=== PATIENT | male | born 2000 | race Hispanic/Latino ===

== ENCOUNTER 2022-02-13 15:08 | Emergency (ER) | payer OTHER, SELFPAY | END 2022-02-13 15:33 | disposition left against medical advice (07) | LOC: ANHED 15:32 | PROVIDERS: PCP Family Medicine | DX: Z53.21 Procedure and treatment not carried out due to patient leaving prior to being seen by health care provider (principal) | CPT/HCPCS: 99199 ==

== ENCOUNTER 2022-04-07 07:09 | Emergency (ER) | payer OTHER, SELFPAY ==
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
[2022-04-07 07:18] VITALS: BP 177/134; PULSE 157; RESP 20; TEMP 37.1; O2SAT 99
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
--- NOTE | 2022-04-07 07:52 | PC.NURSE ---
Geological Engineering Teacher notified of Clear and Present at this time.
[2022-04-07 08:24] LABS: Basophils Percent Auto 0.4 % (0.2-1.2); Eosinophils Absolute Auto 0.1 K/mm3 (0-0.3); Eosinophils Percent Auto 1.3 % (0-4.4); Hematocrit 44.7 % (42.0-52.0); Hemoglobin 14.8 g/dL (14.0-18.0); Immature Granulocyte Absolute 0.07 K/mm3 (0.00-0.031); Immature Granulocyte Percent A 0.6 % (0-0.5); Lymphocytes Absolute Auto 2.53 K/mm3 (0.9-3.2); Mean Corpuscular HGB Conc 33.1 g/dl (32-36); Mean Corpuscular Hemoglobin 30.6 pg (26-34); Mean Corpuscular Volume 92.4 fl (80-100); Mean Platelet Volume 10.3 fl (7.4-10.4); Monocytes Absolute Auto 0.8 K/mm3 (0.1-0.6); Monocytes Percent Auto 7.2 % (2.6-8.5); Neutrophils Absolute Auto 7.4 K/mm3 (1.3-6.7); Neutrophils Percent Auto 67.5 % (45.5-73.1); Platelet Count Result 275 k/mm3 (150-375); Red Blood Count 4.84 M/mm3 (4.6-6.20); Red Cell Distribution Width 12.8 % (11.5-14.5)
[2022-04-07] MEDS: TETANUS,DIPHTHERIA,AC PERTUSSIS ADULT (0.5 ML) BOOSTRIX IM (08:24)
[2022-04-07 08:26] LABS: Appearance Urine Clear (Clear); Bilirubin Urine Negative (Negative); Color Urine Yellow (Yellow); Glucose Urine UA Negative (Negative); Ketones Urine Negative (Negative); Leukocyte Esterase Ur Negative LEU/UL (Negative); Nitrate Urine Negative (Negative); Protein Urine 1+ mg/dL (Negative); Urobilinogen Urine 0.2 mg/dL (<2.0)
[2022-04-07 08:29] LABS: Add Urine Microscopic? YES; Blood Urine Trace-Intact (Negative)
[2022-04-07 08:30] VITALS: BP 147/85; PULSE 80; RESP 20; O2SAT 100
[2022-04-07 08:31] LABS: Mucus Urine Rare /lpf; RBC Urine 0-2 /hpf (0-2); WBC Urine 0-3 /hpf
[2022-04-07 08:36] LABS: Alanine Aminotransferase 71 U/L (6-50); Albumin Level 4.9 g/dL (3.5-5.1); Alkaline Phosphatase 83 U/L (38-126); Anion Gap 15 mmol/L (8-16); Aspartate Amino Transferase 42 U/L (17-59); Bilirubin,Total 0.4 mg/dL (0.2-1.3); Blood Urea Nitrogen 12 mg/dL (9-20); Calcium 9.2 mg/dL (8.4-10.2); Carbon Dioxide 22 mmol/L (22-30); Chloride 104 mmol/L (98-107); Estimated CRCL calculation 147 ml/min; Estimated Glomerular Filt Rate > 60; Glucose 105 mg/dL (65-110); Potassium 3.6 mmol/L (3.4-5.0); Sodium 141 mmol/L (137-145)
[2022-04-07 08:39] LABS: Amphetamine Screen Urine Negative (Negative); Barbiturate Screen Urine Negative (Negative); Benzodiazepines Screen Urine Negative (Negative); Cannabinoid Screen Urine Negative (Negative); Cocaine Screen Urine Negative (Negative); Methadone Screen Urine Negative (Negative); Opiate Screen Urine Negative (Negative); Phencyclidine Screen Urine Negative (Negative)
[2022-04-07 08:54] LABS: Acetaminophen < 10 ug/mL (10-30); Ethanol 173 mg/dL (<10); Salicylate < 1.0 mg/dL (2-20)
[2022-04-07] MEDS: LORazepam INJ (*CRX) 2 MG/ML VIAL (08:57)
[2022-04-07 09:00] LABS: SARS-CoV-2 RNA PCR Negative
[2022-04-07] MEDS: LIDO 1%/EPINEPHRINE 1:100,000 10 ML VIAL INFILTRATE (10:59)
--- NOTE | 2022-04-07 11:09 | PC.NURSE ---
crisis in room with patient at this time
--- NOTE | 2022-04-07 11:30 | PC.NURSE ---
pt going to be placed involuntary
[2022-04-07 14:29] LABS: Ethanol < 10 mg/dL (<10)
--- NOTE | 2022-04-07 15:23 | PC.NURSE ---
Mirtha with crisis updated with pt etoh level <10.
[2022-04-07] MEDS: NICOTINE (*PBKC) 14 MG PATCH 1 PATCH TRANSDERM (17:36)
[2022-04-07] MEDS: LORazepam (*CRX) 1 MG TABLET PO (17:36)
--- NOTE | 2022-04-08 01:30 | PC.NURSE ---
Pt threw nicotine patch in the trash due to it falling on the floor.
[2022-04-08 01:41] VITALS: BP 148/93; PULSE 102; RESP 16; TEMP 36.8; O2SAT 97
--- NOTE | 2022-04-08 01:44 | PC.NURSE ---
PT asking that in the morning the nurse attempt to call his grandpa again in the morning. Asking that the grandpa speak with the uncle to see if anyone can get a hold of his girlfriend. he would like her to bring his keys and glasses.
[2022-04-08] MEDS: LORazepam (*CRX) 1 MG TABLET PO (02:03)
[2022-04-08] MEDS: NICOTINE (*PBKC) 21 MG PATCH 1 PATCH TRANSDERM (09:10)
[2022-04-08 11:15] VITALS: BP 155/93; PULSE 95; RESP 16; TEMP 37.1; O2SAT 97
== END 2022-04-08 14:40 ==
PROVIDERS: Emergency Medicine; Emergency Provider Emergency Medicine
DX: F32.9 Major depressive disorder, single episode, unspecified (principal); R45.851 Suicidal ideations; S21.112A Laceration without foreign body of left front wall of thorax without penetration into thoracic cavity, initial encounter; W27.2XXA Contact with scissors, initial encounter; Z20.822 Contact with and (suspected) exposure to COVID-19; Z23 Encounter for immunization
CPT/HCPCS: 36415; 71260; 80053; 80307; 81001; 84443; 85025; 90471; 90715; 99285; A9270; C9803; J2060; Q9967; U0003; U0005

== ENCOUNTER 2022-04-25 01:04 | Emergency (ER) | payer OTHER, SELFPAY ==
--- NOTE | 2022-04-25 01:14 | ED.PSYCH ---
HPI - Psych General Chief Complaint: Psychiatric Symptoms <Kirt Aponte APRN - Last Filed: 04/25/22 02:07> Stated Complaint: PSYCH <Kirt Aponte APRN - Last Filed: 04/25/22 02:07> Time Seen by Provider: 04/25/22 01:09 <Kirt Aponte APRN - Last Filed: 04/25/22 02:07> History of Present Illness HPI Narrative: 22-year-old male presents the emergency room via EMS for allegedly suicidal ideation. Patient states that he has been anxious recently, thinking about his recently mother. Patient made some a self harming comments, which included the desire to stab himself. Patient states that he was able to talk to a friend's mother earlier this evening and calm himself down. The friend's mother called local law enforcement, and they did a welfare check. On welfare check EMS was on scene and transported the patient here. Patient currently is denying any suicidal ideation or plan to hurt himself. <Kirt Aponte APRN - Last Filed: 04/25/22 02:07> Related Data Home Medications: Home Medications Medication Instructions Recorded Confirmed No Home Medications 04/07/22 04/07/22 <Kirt Aponte APRN - Last Filed: 04/25/22 02:07> Allergies/Adverse Reactions: Allergies Allergy/AdvReac Type Severity Reaction Status Date / Time No Known Allergies Allergy Verified 04/25/22 01:19 <Kirt Aponte APRN - Last Filed: 04/25/22 02:07> Review of Systems Review of Systems: CONSTITUTIONAL: Denies fever, chills, or sweats. EYES: Denies visual changes, redness, or discharge. ENT: Denies rhinorrhea, congestion, sore throat, or otalgia. CARDIOVASCULAR: Denies chest pain, palpitations, or edema. RESPIRATORY: Denies cough or dyspnea. GASTROINTESTINAL: Denies abdominal pain, nausea, vomiting, or diarrhea. GENITOURINARY: Denies dysuria or hematuria. SKIN: Denies rash or itching. MUSCULOSKELETAL: Denies back pain, joint pain, or myalgia. NEUROLOGIC: Denies headache, numbness, dizziness, or weakness. PSYCHIATRIC: Reports anxiety and depression. <Kirt Aponte APRN - Last Filed: 04/25/22 02:07> [facility] Past Medical History Medical History: Medical History Anxiety Depression <Kirt Aponte APRN - Last Filed: 04/25/22 02:07> Family History Family History: Family History Other Diabetes mellitus <Kirt Aponte APRN - Last Filed: 04/25/22 02:07> Social History Social History: Social History Alcohol intake: current Substance use type: does not use <Kirt Aponte APRN - Last Filed: 04/25/22 02:07> Exam Narrative: GENERAL: Well-appearing, well-nourished, no physical limitations, and in no acute distress. HEAD: Normocephalic, atraumatic. EYES: Conjunctivae normal, PERRLA and EOMI. CHEST: Clear to auscultation. No respiratory distress. No wheezes rales or rhonchi. No tenderness. HEART: Regular rate and rhythm. No murmur heard. Normal peripheral pulses. EXTREMITIES: Normal range of motion. No edema. No clubbing or cyanosis SKIN: Warm, dry, no rash. No noted wounds NEURO: No focal deficits. Alert and oriented x3. MAEW. CN's II-XI intact bilaterally, normal gait PSYCH: Cooperative. Flat affect. <Kirt Aponte APRN - Last Filed: 04/25/22 02:07> Course Course Emergency Course: 0200: Patient is medically cleared. Crisis called for evaluation. <Kirt Aponte APRN - Last Filed: 04/25/22 02:07> 0200: Patient is medically cleared. Crisis called for evaluation. 0700 care turned over to myself at shift change and evaluated my H&P currently awaiting psychiatric placement Patient reevaluated by crisis echo vasc tech patient's been denying suicidal homicidal ideation to myself and denied to the echo vasc tech results patient will be go home with a safety plan Discussed with patient d
[2022-04-25 01:17] VITALS: BP 146/83; PULSE 121; RESP 16; TEMP 36.8; O2SAT 97
[2022-04-25 01:24] LABS: Basophils Percent Auto 0.3 % (0.2-1.2); Eosinophils Absolute Auto 0.1 K/mm3 (0-0.3); Eosinophils Percent Auto 1.6 % (0-4.4); Hematocrit 46.6 % (42.0-52.0); Hemoglobin 15.6 g/dL (14.0-18.0); Immature Granulocyte Absolute 0.03 K/mm3 (0.00-0.031); Immature Granulocyte Percent A 0.3 % (0-0.5); Lymphocytes Absolute Auto 2.24 K/mm3 (0.9-3.2); Lymphocytes Percent Auto 24.9 % (18.3-44.2); Mean Corpuscular HGB Conc 33.5 g/dl (32-36); Mean Corpuscular Hemoglobin 30.7 pg (26-34); Mean Corpuscular Volume 91.7 fl (80-100); Mean Platelet Volume 10.1 fl (7.4-10.4); Monocytes Absolute Auto 0.5 K/mm3 (0.1-0.6); Monocytes Percent Auto 5.7 % (2.6-8.5); Neutrophils Percent Auto 67.2 % (45.5-73.1); Platelet Count Result 307 k/mm3 (150-375); Red Blood Count 5.08 M/mm3 (4.6-6.20); Red Cell Distribution Width 12.2 % (11.5-14.5)
[2022-04-25 01:32] LABS: Acetaminophen < 10 ug/mL (10-30); Ethanol 16 mg/dL (<10); Salicylate < 1.0 mg/dL (2-20)
[2022-04-25 01:33] LABS: Alanine Aminotransferase 160 U/L (6-50); Albumin Level 4.9 g/dL (3.5-5.1); Alkaline Phosphatase 97 U/L (38-126); Anion Gap 12 mmol/L (8-16); Aspartate Amino Transferase 82 U/L (17-59); Bilirubin,Total 0.4 mg/dL (0.2-1.3); Blood Urea Nitrogen 10 mg/dL (9-20); Calcium 9.2 mg/dL (8.4-10.2); Carbon Dioxide 26 mmol/L (22-30); Chloride 100 mmol/L (98-107); Estimated Glomerular Filt Rate > 60; Glucose 108 mg/dL (65-110); Potassium 3.6 mmol/L (3.4-5.0); Sodium 138 mmol/L (137-145)
[2022-04-25 02:05] LABS: Add Urine Microscopic? YES; Appearance Urine Clear (Clear); Bilirubin Urine Negative (Negative); Blood Urine Trace-Intact (Negative); Color Urine Yellow (Yellow); Glucose Urine UA Negative (Negative); Ketones Urine 1+ mg/dL (Negative); Leukocyte Esterase Ur Negative LEU/UL (Negative); Nitrate Urine Negative (Negative); Protein Urine 1+ mg/dL (Negative); Specific Grav Ur >= 1.030 (1.001-1.035); Urobilinogen Urine 0.2 mg/dL (<2.0)
--- NOTE | 2022-04-25 02:07 | PC.NURSE ---
Pt belongings place in bag and locked in cabinet across from room 4.
[2022-04-25 02:09] LABS: Bacteria Urine Trace /hpf; Mucus Urine Few /lpf; WBC Urine 0-3 /hpf
[2022-04-25 02:20] LABS: Amphetamine Screen Urine Negative (Negative); Barbiturate Screen Urine Negative (Negative); Benzodiazepines Screen Urine Negative (Negative); Cannabinoid Screen Urine Negative (Negative); Cocaine Screen Urine Negative (Negative); Methadone Screen Urine Negative (Negative); Opiate Screen Urine Negative (Negative); Phencyclidine Screen Urine Negative (Negative)
[2022-04-25 02:30] LABS: SARS-CoV-2 RNA PCR Negative
--- NOTE | 2022-04-25 03:34 | PC.NURSE ---
Per Crisis territory service representative, patient is now involuntary. Sitter is required still at this time.
[2022-04-25] MEDS: NICOTINE (*PBKC) 21 MG PATCH 1 PATCH TRANSDERM (04:00)
[2022-04-25] MEDS: LORazepam (*CRX) 1 MG TABLET PO (04:08)
--- NOTE | 2022-04-25 04:11 | PC.NURSE ---
Pt chart was faxed to [facility] in [place].
[2022-04-25 07:15] VITALS: BP 138/67; PULSE 78; TEMP 36.4; O2SAT 99
--- NOTE | 2022-04-25 07:19 | PC.NURSE ---
Patient report received from TR [place]. All questions answered and care of patient assumed.
[2022-04-25] MEDS: hydrOXYzine HCL 25 MG TABLET 50 MG PO (07:56)
--- NOTE | 2022-04-25 08:20 | PC.NURSE ---
Received call from [facility]. They state they will be calling again for nurse to nurse report.
--- NOTE | 2022-04-25 09:06 | PC.NURSE ---
Patient report provided to TR Miranda at [facility]. She states that the information will be provided to the Physician and the cad operator will follow up via phone afterwards. Patient currently denying suicidal thoughts. He states that he did have fleeting thoughts on the one occasion that he voiced them to his friends. He requests that the [facility] Property Manager speak with him. Crisis called and the request was verbalized by this RN to Gia. Gia with [facility] states that she will have the cad operator come back to the ED to speak with the patient this morning.
--- NOTE | 2022-04-25 10:37 | PC.NURSE ---
Received call from Marleen at the [facility]. She states that the patient is accepted by Dr. Bethel Vidal if the patient agree to voluntary admission. If the patient has to be admitted involuntarily they will not accept the patient. Awaiting repeat assessment by [facility] time study technologist. Patient appears to be asleep at this time. Eyes closed with regular, non-labored respirations. Sitter remains at bedside.
--- NOTE | 2022-04-25 11:19 | PC.NURSE ---
Patient report given to TR [place]. All questions answered and care of patient transferred.
--- NOTE | 2022-04-25 11:58 | PC.NURSE ---
pt declined at the [facility] d/t lab tests
[2022-04-25 14:28] VITALS: BP 138/92; PULSE 80; RESP 14; O2SAT 98
== END 2022-04-25 14:30 | disposition home or self-care (01) ==
PROVIDERS: Emergency Provider Nurse Practitioner Family
DX: F32.A Depression, unspecified (principal); Z20.822 Contact with and (suspected) exposure to COVID-19
CPT/HCPCS: 36415; 80053; 80307; 81001; 85025; 99284; A9270; C9803; U0003; U0005